=== PATIENT | male | born 1940 | race Caucasian/White ===

== ENCOUNTER 2020-01-10 07:51 | Emergency (ER) | payer OTHER, MEDICAID ==
[~2020-01-10] VITALS: Ht 185.4 cm; Wt 79.5 kg
[2020-01-10 11:27] VITALS: BP 161/88
== END 2020-01-10 11:30 | disposition home or self-care (01) ==
LOC: EMS 07:53
DX: G47.00 Insomnia, unspecified (principal)

== ENCOUNTER 2021-01-05 06:51 | Emergency (ER) | payer OTHER, MEDICAID ==
[~2021-01-05] VITALS: Ht 185.4 cm; Wt 85.0 kg
[2021-01-05 08:26] LABS: BASOPHILS % (AUTO) 2.9 % (0.0-2.0); HEMATOCRIT 41.3 % (41-53); HEMOGLOBIN 13.9 g/dL (13.5-17.5); LYMPHOCYTES # (AUTO) 1.3 K/uL (1.0-4.8); LYMPHOCYTES % (AUTO) 24.8 % (22.0-44.0); MEAN CORPUSCULAR HEMOGLOBIN 30.8 pg (26.0-34.0); MEAN CORPUSCULAR HGB CONC 33.7 G/dL (31.0-37.0); MEAN CORPUSCULAR VOLUME 91 fL (80-100); MONOCYTES # (AUTO) 0.5 K/uL (0.1-1.0); MONOCYTES % (AUTO) 10.3 % (2.0-9.0); NEUTROPHILS # (AUTO) 2.9 K/uL (1.8-7.7); PLATELET COUNT (AUTO) 240 K/uL (150-450); RED BLOOD CELL COUNT(AUTO) 4.53 MIL/uL (4.50-5.90)
[2021-01-05 08:36] LABS: ANION GAP 8 mmol/L (8-16); CALCIUM, TOTAL 8.8 mg/dL (8.8-10.5); CARBON DIOXIDE 28 mmol/L (22-29); CHLORIDE 105 mmol/L (98-107); CREATININE 0.79 mg/dL (0.60-1.30); GLUCOSE,RANDOM 99 mg/dL (70-110); SODIUM SERUM 141 mmol/L (136-145); UREA NITROGEN, BLOOD 13 mg/dL (7-18)
[2021-01-05 08:42] LABS: ALANINE AMINOTRANSFERASE 23 U/L (12-78); ALBUMIN 3.3 g/dL (3.4-5.0); ALKALINE PHOSPHATASE 114 U/L (46-116); ASPARTATE AMINOTRANSFERASE 21 U/L (15-37); BILIRUBIN,TOTAL 0.6 mg/dL (0.1-1.0); TOTAL PROTEIN, SERUM 6.5 g/dL (6.4-8.2)
[2021-01-05 08:43] LABS: GLOMERULAR FILTR. RATE CALC > 60 mL/min (>60)
[2021-01-05 12:29] VITALS: BP 164/90
== END 2021-01-05 12:46 | disposition left against medical advice (07) ==
LOC: EMS 06:51
DX: R39.11 Hesitancy of micturition (principal); R15.1 Fecal smearing; C61 Malignant neoplasm of prostate
CPT/HCPCS: 80053; 85025; 99283